=== PATIENT | male | born 1945 ===

== ENCOUNTER 2023-04-16 09:09 | Outpatient (CLI) | payer OTHER ==
[~2023-04-16 09:09] MED LIST: POLY119PG PO; SURFAK240 M1 PO; ULTRACET PO
== END 2023-04-16 09:13 | disposition home or self-care (01) ==
LOC: RX STUDY 09:09
PROVIDERS: ATTEND Otolaryngology Plastic Surgery within the Head & Neck
DX: R13.19 Other dysphagia (principal); R09.89 Other specified symptoms and signs involving the circulatory and respiratory systems